=== PATIENT | male | born 1950 | race Caucasian/White ===

== ENCOUNTER → 2017-01-20 | Outpatient (CLI) | payer MEDICARE ==
[~2017-01-20] MED LIST: AMBIEN CR12.5 MG PO; ASPIR 8181 MG PO; EFFEXOR XR150 MG PO; GLUCOPHAGE-DPS500 MG PO; LIPITOR DPS20 MG PO; MAALOX DPS30 ML PO; NASACORT16.9 ML NS; NEXIUM 24HR20 MG PO; PLAVIX75 MG PO; SURFAK DPS240 MG PO; TOPROL XL25 MG PO; ZESTORETIC 20/11 TAB PO
== END | disposition home or self-care (01) ==
LOC: PTH.S 13:45 → RAD.S 14:08
DX: H90.41 Sensorineural hearing loss, unilateral, right ear, with unrestricted hearing on the contralateral side (principal)